=== PATIENT | female | born 1975 | race African-American/Black ===

== ENCOUNTER 2016-08-13 18:02 | Emergency (ER) | payer OTHER ==
[~2016-08-13] VITALS: Ht 162.6 cm; Wt 101.5 kg
[~2016-08-13 18:02] MED LIST: AMOXICILLIN875 MG PO; HYDROCHLOROTHIA25 MG PO; INDOCIN25 MG PO; LABETALOL HCL100 MG PO; LABETALOL HCL200 MG PO; LISINOPRIL-HCT1 EACH PO; NAPROSYN500 MG PO; NORCO 5/3251 TABLET PO; NORVASC10 MG PO; PROMETHAZINE HC25 M1 PO; ULTRAM50 MG PO; ZOFRAN4 MG PO; Zestril,Prinivil PO; advair; proair
[2016-08-13 18:51] LABS: MCH 29.2 PG (29.0-34.0); MCHC 33.5 G/DL (30.0-36.0); MCV 87.1 FL (83-99); MEAN PLAT.VOLUME 9.6 uM^3 (9.5-12.4); PLATELET COUNT 303 K/uL (156-360); RBC DIS.WIDTH-CV 12.9 % (11.8-14.6); RBC DIS.WIDTH-SD 40.7 % (39-53); RED BLOOD COUNT 4.25 M/uL (3.80-5.20); WHITE BLOOD COUNT 5.5 K/uL (4.1-10.2)
[2016-08-13 18:59] LABS: CHLORIDE 109 mEq/L (99-109); POTASSIUM 3.6 mEq/L (3.7-5.4); SODIUM 142 mEq/L (136-147)
[2016-08-13 19:01] LABS: GLUCOSE 98 mg/dL (70-99)
[2016-08-13 19:02] LABS: ANION GAP 9 MEQ/L (2-14)
[2016-08-13 19:05] LABS: GFR ESTIMATE (CALCULATED) > 59 mL/min/
[2016-08-13 19:06] LABS: UREA NITROGEN (BUN) 10 mg/dL (9-23)
[2016-08-13 19:12] LABS: TROP-I INTERPRETATION NEGATIVE; TROPONIN-I < 0.01 ng/mL (0.0-0.30)
[2016-08-13 19:38] LABS: D-DIMER ELISA 0.69 mg/L FEU (< 0.57)
[2016-08-13 22:50] LABS: TROP-I INTERPRETATION NEGATIVE; TROPONIN-I < 0.01 ng/mL (0.0-0.30)
[2016-08-13 23:04] VITALS: BP 134/71
== END 2016-08-13 23:05 | disposition home or self-care (01) ==
LOC: EME 18:02
PROVIDERS: Emergency Medicine
DX: R07.9 Chest pain, unspecified (principal); I10 Essential (primary) hypertension; J45.909 Unspecified asthma, uncomplicated; F32.9 Major depressive disorder, single episode, unspecified; F41.9 Anxiety disorder, unspecified; Z87.891 Personal history of nicotine dependence
CPT/HCPCS: 71020; 71275; 80048; 84484; 85027; 85379; 93005; 99281; 99285

== ENCOUNTER 2017-10-02 19:28 | Emergency (ER) | payer OTHER ==
[~2017-10-02] VITALS: Ht 162.6 cm; Wt 103.2 kg
[2017-10-02] MEDS ORDERED: PEPCID20 MG PO (22:09)
[2017-10-02 23:26] VITALS: BP 154/107
== END 2017-10-02 23:27 | disposition home or self-care (01) ==
LOC: EME 19:28
DX: L50.0 Allergic urticaria (principal); T36.0X5A Adverse effect of penicillins, initial encounter; J45.909 Unspecified asthma, uncomplicated; F32.9 Major depressive disorder, single episode, unspecified; Z88.5 Allergy status to narcotic agent; Z88.6 Allergy status to analgesic agent
CPT/HCPCS: 99281; 99284; J1100; J1200; J7030; S0028

== ENCOUNTER 2017-10-09 14:18 | Emergency (ER) | payer OTHER ==
[~2017-10-09] VITALS: Ht 162.6 cm; Wt 108.0 kg
[~2017-10-09 14:18] MED LIST changes: +PEPCID20 MG PO
[2017-10-09 15:57] LABS: HEMATOCRIT 37.3 % (36.0-46.0); MCH 29.5 PG (29.0-34.0); MCHC 34.9 G/DL (30.0-36.0); MCV 84.6 FL (83-99); PLATELET COUNT 310 K/uL (156-360); RBC DIS.WIDTH-CV 12.5 % (11.8-14.6); RBC DIS.WIDTH-SD 37.9 % (39-53); RED BLOOD COUNT 4.41 M/uL (3.80-5.20)
[2017-10-09 16:13] LABS: CHLORIDE 103 mEq/L (99-109); POTASSIUM 3.8 mEq/L (3.7-5.4); SODIUM 140 mEq/L (136-147)
[2017-10-09 16:15] LABS: GLUCOSE 105 mg/dL (70-99)
[2017-10-09 16:19] LABS: CREATININE 1.2 mg/dL (0.6-1.3); GFR ESTIMATE (CALCULATED) > 59 mL/min/
[2017-10-09 16:20] LABS: UREA NITROGEN (BUN) 11 mg/dL (9-23)
[2017-10-09 16:26] LABS: TROP-I INTERPRETATION NEGATIVE; TROPONIN-I < 0.01 ng/mL (0.0-0.30)
[2017-10-09 17:12] LABS: APPEARANCE SL.HAZY ((CLEAR)); BILIRUBIN NEGATIVE; BLOOD NEGATIVE; COLOR STRAW ((YELLOW)); GLUCOSE (STRIP) NEGATIVE; KETONES NEGATIVE; LEUKOCYTES MODERATE; NITRITE NEGATIVE; PROTEIN (STRIP) NEGATIVE; SPECIFIC GRAVITY 1.006 (1.000-1.030); UROBILINOGEN 0.2 MG/DL (0.2-1.0)
[2017-10-09 17:29] LABS: BACTERIA RARE /HPF; EPITHELIAL CELLS 4+ /HPF; MUCUS TRACE /LPF; RED BLOOD CELLS 0-5 /HPF (0-5); UCUL ADDED? YES
[2017-10-09 18:00] VITALS: BP 132/82
== END 2017-10-09 18:01 | disposition home or self-care (01) ==
LOC: EME 14:18
PROVIDERS: Nurse Practitioner Family
DX: R07.89 Other chest pain (principal); F41.9 Anxiety disorder, unspecified; R53.83 Other fatigue; J45.909 Unspecified asthma, uncomplicated; F32.9 Major depressive disorder, single episode, unspecified; F17.200 Nicotine dependence, unspecified, uncomplicated; Z88.6 Allergy status to analgesic agent; Z88.5 Allergy status to narcotic agent; Z88.8 Allergy status to other drugs, medicaments and biological substances
CPT/HCPCS: 71046; 80048; 81003; 84484; 85027; 87086; 93005; 99281; 99284; J7030